=== PATIENT | female | born 1930 | race Caucasian/White ===

== ENCOUNTER 2017-04-29 07:12 | Outpatient (CLI) | payer MEDICARE, OTHER ==
--- NOTE | ~2017-04-29 | HEMODYNAMI ---
PATIENT:LOPEZ MOREAU MEDICAL RECORD: [id number] : 34 LOCATION:[facility] ADMISSION DATE: 04/29/17 Generatedon:04/29/201713:40 Patient name: LOPEZ MOREAU Patient #: [id number] SSN: : [id number] Date of study: 04/29/2017 Page: Of Hemodynamic Procedure Report Patient Data Patient Demographics Procedure consent was obtained First Name: LOPEZ Gender: Female Last Name: LIZZETH : 1930 Patient #: [id number] Age: 86 year(s) Race: Unknown Additional ID: [id number] Contact details Address: [address] [place] [address] [address] State: [place] City: [facility] Zip code: [address] Past Medical History Allergies Allergen Reaction Date Comments Reported Other allergy 04/29/2017 ibuprofen Admission Admission Data Admission Date: 04/29/2017 Admission Time: 13:00 Procedure Procedure Types Cath Procedure Diagnostic Procedure LHC LHC w/Coronaries PCI Procedure PTCA PTCA Initial Miscellaneous Procedures Moderate Sedation up to 15 minutes Procedure Description Procedure Date Procedure Date: 04/29/2017 Procedure Start Time: 13:13 Procedure End Time: 13:38 Procedure Staff Name Function Cj Young MD Performing Physician Gris Hassan RT Monitor Jaimee Tamayo RT Scrub Corby Pena RN Nurse Procedure Data Cath Procedure Fluoroscopy Diagnostic fluoroscopy Total fluoroscopy Time: 6.7 time: 6.7 min min Diagnostic fluoroscopy Total fluoroscopy dose: 840 dose: 840 mGy mGy Contrast Material Contrast Material Type Amount (ml) Isovue 300 118 Entry Location Entry Primary Successful Side Size Upsize Upsize Entry Closure Succes sful Closure Location (Fr) 1 (Fr) 2 (Fr) Remarks Device Remarks Femoral Right 5 Fr 6 Fr Exoseal artery Short Estimated blood loss: 5 ml Diagnostic catheters Device Type Used For End Catheter Placement MULTIPACK JL 4.0 5Fr Left Coronary catheter Angiography MULTIPACK 3DRC 5Fr Right Coronary catheter Angiography MULTIPACK Pigtail 5 Fr LV Angiography catheter Procedure Complications No complications Procedure Medications Medication Administration Route Dosage Oxygen NC 2 l/min Lidocaine 2% added to field 20 Heparin Flush Bag added to field 2 bags (1000units/500ml NS) 0.9% NaCl I.V. 100 ml/hr Versed I.V. 1 mg Fentanyl I.V. 50 mcg Versed I.V. 1 mg Fentanyl I.V. 50 mcg Versed I.V. 1 mg Fentanyl I.V. 50 mcg Heparin Bolus I.V. 4000 units Integrilin (Bolus I.V. 5 ml 2mg/ml) Brilinta P.O. 180 mg Hemodynamics Rest Heart Rate: 72 (bpm) Pressure Samples Time Site Value (mmHg) Purpose Heart Use Rate(bpm) 13:19 LV 203/25,-15 Snapshot 68 13:19 AO 114/64(79) Pullback 75 13:19 LV 118/11,13 Pullback 75 Gradients Valve Time Site 1 Site 2 Mean SEP/DFP Peak To Heart Use (mmHg) (sec/min) Peak Rate (mmHg) (bpm) Aortic 13:19 LV AO 11 17 4 75 118/11,13 114/64(79) Calculations Valve P-P Mean Valve Index Valve Source Name Gradient Area Flow (cm2) Aortic 4 11 4 11 Snapshots Pre Cath Intra NCS Post Cath Vital Signs Time Heart Resp SPO2 etCO2 NIBP (mmHg) Rhythm Pain Sedation Rate (ipm) (%) (mmHg) Status Level (bpm) 13:01:49 68 21 99 0 195/74(137) NSR 0 (11) 10(A) , No pain 13:06:19 65 19 97 29.2 180/64(121) NSR 0 (11) 10(A) , No pain 13:10:33 62 18 95 22.4 174/103(134) NSR 0 (11) 10(A) , No pain 13:15:06 64 16 96 11.9 183/54(107) NSR 0 (11) 9(A) , No pain 13:19:30 68 15 98 19.4 162/51(84) NSR 0 (11) 9(A) , No pain 13:23:54 68 16 94 8.2 156/57(98) NSR 0 (11) 9(A) , No pain 13:28:18 70 17 97 28.4 150/53(106) NSR 0 (11) 9(A) , No pain 13:32:36 71 19 98 20.2 151/55(93) NSR 0 (11) 9(A) , No pain 13:37:01 72 17 96 11.2 150/53(97) NSR 0 (11) 10(A) , No pain Medications Time Medication Route Dose Verified Delivered Reason Notes Effectiveness by by 13:05:09 Oxygen NC 2 Cj Buffie used for l/min St Panda Pena RN procedure 13:05:18 Lidocaine 2% added 20ml Cj Cj for local to vial [facility] anesthetic field MD GAXIOLA 13:05:23 Heparin Flush added 2 Cj Cj used for Bag to bags [facility] procedure (1000units/500ml field MD GAXIOLA NS) 13:05:32 0.9% NaCl I.V. 100 Cj Buffie Per physician ml/hr St Panda Pena RN, MD 13:11:50 Versed I.V. 1 mg Cj Buffie for sedation St Panda Pena RN, MD 13:11:56 Fentanyl I.V. 50 Cj Buffie for sedation [facility] [place] P[facility] RN, MD 13:15:31 Versed I.V. 1 mg Cj Buffie for sedation St Pnada Pena RN, MD 13:15:35 Fentanyl I.V. 50 Cj Buffie for sedation [facility] Panda Pena RN, MD 13:20:17 Versed I.V. 1 mg Cj Buffie for sedation St Panda Pena RN, MD 13:20:21 Fentanyl I.V. 50 Cj Buffie for sedation [facility] Panda Pena RN, MD 13:21:14 Heparin Bolus I.V. [address] for units [facility] Panda Pena RN anticoagulation 13:22:57 Integrilin I.V. 5 ml Cj Buffie for (Bolus 2mg/ml) St Panda Pena RN antiplatelet therapy 13:38:18 Brilinta P.O. 180 Cj Jimenezie for mg St Panda Pena RN antiplatelet therapy Procedure Log Time Note 12:40:57 Gris Hassan RT(R) sent for patient. Start room use. 12:53:57 Time tracking: Regular hours 12:54:02 Plan of Care:Hemodynamics will remain stable., Cardiac rhythm will remain stable., Comfort level will be maintained., Respiratory function will remain adequate., Patient/ family verbilizes understanding of procedure., Procedure tolerated without complication., Recovers from procedure without complications.. 12:54:17 Patient received from Pre/Post Procedure Room to CCL 2 Alert and oriented. Tansferred to table in Supine position. 12:54:17 Warm blankets applied, and maddi hugger turned on for patient comfort. 12:54:18 Correct patient and procedure confirmed by team. 12:54:20 Signed procedure consent form obtained from patient. 12:54:20 ECG and BP/O2 sat monitors applied to patient. 12:59:20 Baseline sample Acquired. 12:59:20 Vital chart was started 12:59:24 Rhythm: sinus rhythm 12:59:26 Full Disclosure recording started 13:00:25 H&P Date Dictated: 04/29/2017 Within 30 days and on chart., H&P Addendum completed by physician on day of procedure. (MUST COMPLETE FOR ALL OUTPATIENTS). 13:00:26 Pre-procedure instructions explained to patient. 13:00:27 Pre-op teaching completed and patient verbalized understanding. 13:00:40 Family in waiting room. 13:00:42 Patient NPO since Midnight. 13:00:56 Patient allergic to Other allergyibuprofen 13:00:58 Is the patient allergic to Iodine/contrast media? No. 13:00:59 Was the patient premedicated? No 13:01:11 Is patient on blood thinner?No 13:01:15 Patient diabetic? Yes. 13:01:16 If diabetic: On Metformin? Yes 13:01:20 If on Metformin: Last Dose? 04/28/2017 13:01:25 Previous problem with sedation/anesthesia? No ? 13:01:27 Snore? Yes 13:01:28 Sleep apnea? No 13:01:29 Deviated septum? No 13:01:30 Opens mouth fully? Yes 13:01:30 Sticks out tongue? Yes 13:01:38 Airway obstruction? No ? 13:01:42 Dentures? No ? 13:01:46 Pre procedure: right dorsailis pedis pulse 1+ Palpable, but thready & weak; easily obliterated 13:01:49 Pre procedure: left dorsailis pedis pulse 1+ Palpable, but thready & weak; easily obliterated 13:01:56 Patient pain scale 0/10 ?. 13:02:03 IV patent on arrival in left antecubital with 0.9% NaCl at [facility]. 13:02:09 Lab results completed and on chart. 13:02:48 Right groin area was prepped with chlora-prep and draped in sterile fashion 13:02:49 Alarms reviewed by R. N. 13:02:49 Sharps counted by scrub and verified by R.N. 13:05:09 Oxygen 2 l/min NC was administered by Corby Pena RN; used for procedure; 13:05:18 Lidocaine 2% 20ml vial added to field was administered by Cj Young MD; for local anesthetic; 13:05:23 Heparin Flush Bag (1000units/500ml NS) 2 bags added to field was administered by Cj Young MD; used for procedure; 13:05:32 0.9% NaCl 100 ml/hr I.V. was administered by Corby Pena RN; Per physician; 13:10:01 Physician arrived 13:10:01 --------ALL STOP TIME OUT------ 13:10:02 Final Timeout: patient, procedure, and site verified with staff and physician. All members of the team are in agreement. 13:10:04 Right groin site verified by team. 13:10:06 Physical assessment completed. ASA score P 2 - A patient with mild systemic disease as per Cj Young MD. 13:10:09 Sedation plan: IV Moderate Sedation Medication:Versed, Fentanyl 13:11:50 Versed 1 mg I.V. was administered by Corby Pena RN; for sedation; 13:11:56 Fentanyl 50 mcg I.V. was administered by Corby Pena RN; for sedation; 13:13:05 Use device set Femoral Dx 13:13:07 ACIST Syringe (96785) opened to sterile field. 13:13:07 Bag Decanter (2002S) opened to sterile field. 13:13:07 Medline Cath Pack ([id number]) opened to sterile field. 13:13:08 SHEATH 5FR [place] (XCM520) opened to sterile field. 13:13:09 DIAGNOSTIC WIRE .035 260cm J wire (810577) opened to sterile field. 13:13:10 ACIST Hand Control (06871) opened to sterile field. 13:13:10 ACIST Manifold (85881) opened to sterile field. 13:13:11 DIAGNOSTIC Multipack 5Fr catheter set (JF6668) opened to sterile field. 13:13:11 Tegaderm 4 x 4 (1626W) opened to sterile field. 13:13:21 Procedure started. 13:13:24 Local anesthetic to right femoral artery with Lidocaine 2% by Cj Young MD.INITIAL ACCESS ONLY 13:13:33 A 5 Fr sheath was inserted into the Right Femoral artery 13:14:19 A MULTIPACK JL 4.0 5Fr catheter was advanced over the wire and used for Left Coronary Angiography. 13:15:01 LCA angiography performed. 13:15:04 Injector settings: Ml/sec: 3, Volume: 6, 13:15:31 Versed 1 mg I.V. was administered by Corby Pena RN; for sedation; 13:15:35 Fentanyl 50 mcg I.V. was administered by Corby Pena RN; for sedation; 13:16:39 Catheter removed. 13:16:44 A MULTIPACK 3DRC 5Fr catheter was advanced over the wire and used for Right Coronary Angiography. 13:17:35 RCA angiography performed. 13:17:43 Injector settings: Ml/sec: 3, Volume: 6, 13:18:04 Catheter removed. 13:18:10 A MULTIPACK Pigtail 5 Fr catheter was advanced over the wire and used for LV Angiography. 13:20:17 Versed 1 mg I.V. was administered by Corby Pena RN; for sedation; 13:20:17 LV hemodynamics recorded. 13:20:18 LV gram done using PRITCHETT 13:20:21 Fentanyl 50 mcg I.V. was administered by Corby Pena RN; for sedation; 13:20:21 Injector settings: Ml/sec: 5, Volume: 15, 13:20:23 Sheath upsized to a 6 Fr Short. 13:20:26 EF : 55 % 13:20:29 Catheter removed. 13:20:32 Proceeding to intervention. 13:20:50 6 Fr jl 4 guide catheter was inserted over the wire 13:21:14 Heparin Bolus 4000 units I.V. was administered by Corby Pena RN; for anticoagulation; 13:22:43 INFLATOR [place] BasixCompak (ZH2627) opened to sterile field. 13:22:45 SHEATH 6FR [place] (LYW547) opened to sterile field. 13:22:45 WHISPER 300cm guide wire ([id number]) opened to sterile field. 13:22:57 Integrilin (Bolus 2mg/ml) 5 ml I.V. was administered by Corby Pena RN; for antiplatelet therapy; 13:23:39 GUIDE 6FR JL 4.0 catheter (VH2VC00) opened to sterile field. 13:25:37 Guide Catheter removed. unable to cannulate vessel. 13:25:51 GUIDE 6FR EBU 3.5 catheter ([id number]) opened to sterile field. 13:26:00 6 Fr ebu 3.5 guide catheter was inserted over the wire 13:29:36 whisper wire advanced. 13:29:38 Wire advanced across lesion. 13:30:47 Inflation number: 1 A EMERGE OTW 3.0 x 15 balloon ([id number]) was prepped and advanced across the Dist LAD, then inflated to 8 MEENAKSHI for 0:30 (min:sec). 13:31:36 Inflation number: 2 The EMERGE OTW 3.0 x 15 balloon ([id number]) was reinflated across the Dist LAD, to 12 MEENAKSHI for 0:30 (min:sec). 13:32:21 Inflation number: 3 The EMERGE OTW 3.0 x 15 balloon ([id number]) was reinflated across the Dist LAD, to 12 MEENAKSHI for 0:30 (min:sec). 13:33:02 Inflation number: 4 The EMERGE OTW 3.0 x 15 balloon ([id number]) was reinflated across the Dist LAD, to 14 MEENAKSHI for 0:30 (min:sec). 13:33:36 Balloon removed over the wire. 13:33:37 Wire removed. 13:33:37 Guide catheter removed. 13:33:45 EXOSEAL 6Fr (EX600) opened to sterile field. 13:36:01 Sheath removed intact; hemostasis achieved with Exoseal to the Right Femoral artery. 13:36:03 Procedure ended.(Physican Out) :36:36 Fluoroscopy time 06.70 minutes. 13:36:39 Fluoroscopy dose: 840 mGy 13:36:39 Flurop Dose total: 840 13:36:43 Contrast amount:Isovue 300 118ml. 13:36:44 Sharps counted by scrub and verified by R.N. 13:36:45 Insertion/operative site no bleeding no hematoma. 13:36:48 Post-op/insertion site Right Femoral artery dressed using a 4 x 4 and Tegaderm. 13:36:50 Post right femoral artery:stable 13:36:52 Post Procedure Pulses reassessed and unchanged 13:36:56 Post procedure rhythm: unchanged. 13:37:22 Estimated blood loss: 5 ml 13:37:23 Post procedure instruction explained to patient.Patient verbalizes understanding. 13:37:24 Patient needs reinforcement of post procedure teaching. 13:37:51 Procedure type changed to Cath procedure, Diagnostic procedure, LHC, LHC w/Coronaries, PCI procedure, PTCA, PTCA Initial, Miscellaneous Procedures, Moderate Sedation up to 15 minutes 13:37:52 Procedure and supply charges have been captured, reviewed, submitted and are correct. 13:38:00 Procedure Complication : No complications 13:38:03 Vital chart was stopped 13:38:03 See physician's report for complete and final results. 13:38:14 Report given to Pre/Post Procedure Room. 13:38:17 Patient transfered to Pre/Post Procedure Room with Stretcher. 13:38:18 Brilinta 180 mg P.O. was administered by Corby Pena RN; for antiplatelet therapy; 13:38:19 Procedure ended. 13:38:19 Full Disclosure recording stopped 13:38:30 ACC-PCI Only Patient was given prescriptions, or instructed by Cj Young MD to start/continue the following medications upon discharge: Brilinta 13:38:32 End room use (Document Last) Intervention Summary Intervention Notes Time ActionType Lesion and Equipment Action# Pressure Duration Attributes Used 13:30:47 Inflate Dist LAD EMERGE OTW 1 8 00:30 balloon 3.0 x 15 balloon ([id number]) 13:31:36 Reinflate Dist LAD EMERGE OTW 2 12 00:30 balloon 3.0 x 15 balloon ([id number]) 13:32:21 Reinflate Dist LAD EMERGE OTW 3 12 00:30 balloon 3.0 x 15 balloon ([id number]) 13:33:02 Reinflate Dist LAD EMERGE OTW 4 14 00:30 balloon 3.0 x 15 balloon ([id number]) Device Usage Item Name Manufacture Quantity Catalog Number Hospital Part Current Min imal Lot# / Charge Number Stock Stock Serial# Code ACIST Acist 1 84814 [id number] 510588 984808 20 Syringe Medical (88168) Systems Inc Bag Decanter Microtek 1 2001S 025787 19405 463963 5 (2001S) Medical Inc. Medline Cath Cardinal 1 [id number] 145120 56980 714857 5 [facility] Health ([id number]) SHEATH 5FR Terumo 1 UVH261 845136 335244 618663 40 [place] (RQR743) DIAGNOSTIC St [place] 1 099149 472916 031516 960526 30 WIRE .035 260cm J wire (681487) ACIST Hand Acist 1 27010 019687 636528 376724 5 Control Medical (46724) Systems Inc ACIST Acist 1 29125 945712 742167 607449 5 Manifold Medical (60326) Systems Inc DIAGNOSTIC Cardinal 1 CK1567 451802 51531 359366 30 Multipevolso Health 5Fr catheter set (ZX0379) Tegaderm 4 x 3M 1 1626W 976193 657901 288731 5 4 (1626W) MULTIPACK JL Cardinal 1 271363 5 4.0 5Fr Health catheter MULTIPACK Cardinal 1 197858 5 3DRC 5Fr Health catheter MULTIPACK Cardinal 1 084195 5 Pigtail 5 Fr Health catheter INFLATOR [facility] 1 UH0511 036858 569593 997742 15 [facility] BasixCompak (FG0737) SHEATH 6FR Terumo 1 FTU214 526147 552117 484795 40 [place] (PMT096) WHISPER Alves 1 [id number] 542704 369394 162515 5 300cm guide Vascular wire (8003143ME) GUIDE 6FR JL Medtronic 1 FR1KL51 521017 34379 993027 1 4.0 catheter (UA2HC12) GUIDE 6FR Medtronic 1 [id number] 292505 11831 213910 3 EBU 3.5 catheter (JN9HGO90) EMERGE OTW [place] 1 [id number] 468187 854263 524741 5 [id number] 3.0 x 15 Scientific balloon ([id number]) EXOSEAL 6Fr Cardinal 1 EX600 146788 703256 867013 10 (EX600) Health Signature Audit [place] Stage Time Signature Unsigned Intra-Procedure 04/29/2017 Gris Hassan 1:40:18 PM RT(R) Signatures Monitor : Gris Hassan RT Signature : Date : Time : [address] [place] [address]
--- NOTE | ~2017-04-29 | OP ---
PATIENT NAME: LOPEZ MOREAU MEDICAL RECORD: [id number] :34 LOCATION:D.CAT ADMISSION DATE: SURGEON: DAPHNIE SOUZA MD DATE OF OPERATION: 04/29/2017 PROCEDURE: Left heart catheterization, selective coronary angiography, and right femoral artery approach. CATHETERS: A 5-Turkmen sheath, 5/4 left and right Howard, and 5/4 pig. Procedure was well tolerated and the patient returned to gonzales, sheath removed. ExoSeal device placed. FINDINGS: Left ventriculography in 30-degree PRITCHETT view: Normal wall motion, normal systolic function. CORONARY ANATOMY: 1. LEFT MAIN: Left main is free of disease. 2. LAD: An area of previous stenting shows a restenosis of approximately 80%, this is diffuse in-stent. 3. CIRCUMFLEX: Free of disease. 4. RIGHT CORONARY ARTERY: No evidence of restenosis. No progression of [place] disease. PLAN: Intervention of restenotic LAD momentarily. The 5-Turkmen sheath was exchanged for a 6-Turkmen sheath. An XB LAD guide catheter 3.5 provided good guide catheter support followed by a 300 cm Whisper wire. Balloon used was a 3.0 x 15 mm Eagle at 14 atmospheres. Final injection shows excellent resolution of diffuse 80% stenosis to less than 20% residual. ELLA flow was 3 throughout the procedure. Brilinta was loaded in the lab. Heparin and Integrilin were used during the case. Sheath closed with ExoSeal device. TRANSINT:[id number] Voice Confirmation ID: [id number] DOCUMENT ID: [id number] DAPHNIE SOUZA MD at 1310 CC: [id number] DICTATION DATE: 04/29/17 1342 KIER OPERATOR: 04/29/17 1422 DEP CLI 04/29/17 [place] [id number]
[2017-04-29 11:27] VITALS: BP 166/57
[2017-04-29 11:29] LABS: BASOPHILS 0.3 % (0-2); EOSINOPHILS 2.2 % (0-7); HEMATOCRIT 32.5 % (36.0-48.0); HEMOGLOBIN 10.2 g/dL (12-16); IMMATURE GRANULOCYTES 0.2 % (0-5); LYMPHOCYTES 32.3 % (15-50); MCH 23.1 pg (26.0-34.0); MCHC 31.4 g/dL (31.0-37.0); MCV 73.7 fL (80.0-100.0); MEAN PLATELET VOLUME 10.1 fL (7.4-10.4); MONOCYTES 7.2 % (2-11); NEUTROPHILS 57.8 % (40-80); PLATELET COUNT 338 10x3/uL (130-400); RBC 4.41 10x6/uL (4.00-5.40); WBC 6.5 10x3/uL (4.8-10.8)
[2017-04-29] MEDS ORDERED: GLUCOPHAGE500 MG PO (11:40)
[2017-04-29] MEDS ORDERED: COREG6.25 MG PO (11:41)
[2017-04-29] MEDS ORDERED: GLYBURIDE5 M1 PO (11:41)
[2017-04-29] MEDS ORDERED: ACTOS30 MG PO (11:42)
[2017-04-29] MEDS ORDERED: LEXAPRO10 MG (11:42)
[2017-04-29] MEDS ORDERED: COSOPT EYE DROPS5 ML EACH EYE (11:43)
[2017-04-29] MEDS ORDERED: LOVASTATIN40 MG PO (11:43)
[2017-04-29] MEDS ORDERED: BAYER CHEWABLE81 MG PO (11:43)
[2017-04-29] MEDS ORDERED: XALATAN 0.0052.5 ML EACH EYE (11:44)
[2017-04-29] MEDS ORDERED: COMBIGAN OPHT DR5 ML EACH EYE (11:45)
[2017-04-29 11:48] LABS: CALC OSMOLALITY 276 mosm/kg (275-300); CARBON DIOXIDE 27.4 mmol/L (21.0-32.0); CHLORIDE - SERUM 103 mmol/L (98-107); CREATININE - SERUM 0.7 mg/dL (0.6-1.3); GLUCOSE 109 mg/dL (74-106); SODIUM 137 mmol/L (136-145); UREA NITROGEN 19 mg/dL (7-18); eGFR NON AFRICAN AMERICAN 84 mL/min (90-120)
[2017-04-29] MEDS ORDERED: BRILINTA90 MG PO (13:53)
== END 2017-04-29 23:59 | disposition home or self-care (01) ==
LOC: D.CATH 07:12
PROVIDERS: Internal Medicine Interventional Cardiology
DX: I25.119 Atherosclerotic heart disease of native coronary artery with unspecified angina pectoris (principal); T82.855A Stenosis of coronary artery stent, initial encounter; Z01.812 Encounter for preprocedural laboratory examination

== ENCOUNTER 2017-08-08 12:55 | Outpatient (CLI) | payer MEDICARE, OTHER ==
[~2017-08-08] VITALS: Ht 162.6 cm; Wt 61.4 kg
[~2017-08-08 12:55] MED LIST: ACTOS30 MG PO; BAYER CHEWABLE81 MG PO; BRILINTA90 MG PO; COMBIGAN OPHT DR5 ML EACH EYE; COREG6.25 MG PO; COSOPT EYE DROPS5 ML EACH EYE; GLUCOPHAGE500 MG PO; GLYBURIDE5 M1 PO; LEXAPRO10 MG; LOVASTATIN40 MG PO; XALATAN 0.0052.5 ML EACH EYE
[2017-08-08 13:29] VITALS: Ht 162.6 cm; Wt 61.4 kg
== END 2017-08-08 16:30 | disposition home or self-care (01) ==
LOC: D.OPS 12:55
DX: D64.9 Anemia, unspecified (principal)

== ENCOUNTER → 2018-07-03 10:50 | Outpatient (CLI) | payer MEDICARE, OTHER ==
[2017-08-08 13:29] VITALS: BMI 23.2
== END | disposition home or self-care (01) ==
LOC: D.MRI 10:50
PROVIDERS: ATTEND Orthopaedic Surgery
DX: M25.512 Pain in left shoulder (principal)

== ENCOUNTER → 2019-01-14 08:31 | Outpatient (CLI) | payer MEDICARE, OTHER ==
[2017-08-08 13:29] VITALS: BMI 23.2
== END | disposition home or self-care (01) ==
LOC: D.MRI 08:31
PROVIDERS: ATTEND Orthopaedic Surgery
DX: M25.512 Pain in left shoulder (principal)

== ENCOUNTER → 2019-08-02 09:14 | Outpatient (CLI) | payer MEDICARE, OTHER ==
[2017-08-08 13:29] VITALS: BMI 23.2
== END | disposition home or self-care (01) ==
LOC: D.HCCARDIO 09:14
PROVIDERS: ATTEND Internal Medicine Cardiovascular Disease
DX: I25.119 Atherosclerotic heart disease of native coronary artery with unspecified angina pectoris (principal)

== ENCOUNTER 2019-08-18 07:17 | Outpatient (CLI) | payer MEDICARE, OTHER ==
[~2019-08-18] VITALS: Ht 162.6 cm; Wt 58.8 kg
--- NOTE | ~2019-08-18 | HEMODYNAMI ---
PATIENT:LOPEZ MOREAU MEDICAL RECORD: [id number] : 34 LOCATION:[facility] ADMISSION DATE: 08/18/19 Generatedon:08/18/20199:51 Patient name: LOPEZ MOREAU Patient #: [id number] SSN: [id number] : 1930 Date of study: 08/18/2019 Page: Of Hemodynamic Procedure Report Patient Data Patient Demographics Procedure consent was obtained First Name: LOPEZ Gender: Female Last Name: LIZZETH : 1930 [facility] Initial: CHELSI Age: 88 year(s) Patient #: [id number] Race: SSN: [id number] Additional ID: [id number] Contact details Address: [address] [place] [address] [address] State: [place] City: [facility] Zip code: [address] Past Medical History Performed procedures and imaging results Date Procedure Procedure Results Comments 08/02/2019 Stress testing Positive->Intermediate with SPECT MPI risk Allergies Allergen Reaction Date Comments Reported Other allergy 04/29/2017 ibuprofen Admission Admission Data Admission Date: 08/18/2019 Admission Time: 7:17 Admit Source: Other Lab Results Lab Result Date: 08/18/2019 Lab Result Time: 0:00 Biochemistry Name Units Result Min Max BUN mg/dl 19 --(----)*- 7 18 Creatinine mg/dl 0.6 --(*---)-- 0.6 1.3 eGFR ml/min 90 --(*---)-- 90 120 NONAFRICAN CBC Name Units Result Min Max Hematocrit % 36.2 *-(----)-- 42 54 Hemoglobin g/dl 11.6 *-(----)-- 13.5 17.5 Procedure Procedure Types Cath Procedure Diagnostic Procedure LHC LHC w/Coronaries Sedation Charges Moderate Sedation up to 15 minutes Procedure Description Procedure Date Procedure Date: 08/18/2019 Procedure Start Time: 9:39 Procedure End Time: 9:50 Procedure Staff Name Function Cj Young MD Performing Physician Corby Pena RN Nurse Gris Hassan RT Scrub Linn Jenkins RT Monitor Procedure Data Cath Procedure Fluoroscopy Diagnostic fluoroscopy Total fluoroscopy Time: 1.9 time: 1.9 min min Diagnostic fluoroscopy Total fluoroscopy dose: 225 dose: 225 mGy mGy Contrast Material Contrast Material Type Amount (ml) Isovue 370 47 Entry Location Entry Primary Successful Side Size Upsize Upsize Entry Closure Succes sful Closure Location (Fr) 1 (Fr) 2 (Fr) Remarks Device Remarks Femoral Right 5 Fr Exoseal artery Estimated blood loss: 5 ml Diagnostic catheters Device Type Used For End Catheter Placement MULTIPACK JL 4.0 5Fr Procedure catheter MULTIPACK 3DRC 5Fr Procedure catheter MULTIPACK Pigtail 5 Fr Procedure catheter Procedure Complications No complications Procedure Medications Medication Administration Route Dosage Oxygen etCO2 Nasal cannula 2 l/min Lidocaine 2% added to field 20 Heparin Flush Bag added to field 2 bags (1000units/500ml NS) 0.9% NaCl I.V. 100 ml/hr Versed I.V. 1 mg Fentanyl I.V. 50 mcg Versed I.V. 1 mg Fentanyl I.V. 50 mcg Hemodynamics Rest HGB: 11.6 (g/dl) Heart Rate: 67 (bpm) Pressure Samples Time Site Value (mmHg) Purpose Heart Use Rate(bpm) 9:45 LV 91/9,7 Snapshot 71 9:46 AO 149/61(88) Pullback 66 Gradients Valve Time Site Site 2 Mean SEP/DFP Peak To Heart Use 1 (mmHg) (sec/min) Peak Rate (mmHg) (bpm) Aortic 9:46 LV AO 11 23 66 149/61(88) Calculations Valve P-P Mean Valve Index Valve Source Name Gradient Area Flow (cm2) Aortic 11 11 Snapshots Pre Cath Intra NCS Post Cath Vital Signs Time Heart Resp SPO2 etCO2 NIBP (mmHg) Rhythm Pain Sedation Rate (ipm) (%) (mmHg) Status Level (bpm) 9:18:41 72 12 99 0 174/67(124) NSR 0 (11) 10(A) , No pain 9:23:06 85 28 100 24.8 184/71(137) NSR 0 (11) 10(A) , No pain 9:27:36 65 16 100 36.2 173/65(117) NSR 0 (11) 10(A) , No pain 9:32:04 62 13 98 36.9 150/58(109) NSR 0 (11) 10(A) , No pain 9:36:26 60 14 97 15.8 130/51(106) NSR 0 (11) 10(A) , No pain 9:40:40 59 16 97 40.6 120/53(96) NSR 0 (11) 9(A) , No pain 9:44:50 63 15 93 33.1 120/52(100) NSR 0 (11) 9(A) , No pain 9:49:00 66 8 95 56.5 126/54(99) NSR 0 (11) 10(A) , No pain Medications Time Medication Route Dose Verified Delivered Reason Notes Effe ctiveness by by 9:17:51 Oxygen etCO2 2 Cj Buffie used [facility] l[facility] 9:17:57 Lidocaine 2% added 20ml Cj Cj for local to vial [facility] anesthetic field MD GAXIOLA 9:18:05 Heparin Flush added 2 Cj Cj used for Bag to bags [facility] procedure (1000units/500ml field MD GAXIOLA NS) 9:18:13 0.9% NaCl I.V. 100 Cj Buffie Per ml/hr [facility] RN physician 9:33:46 Versed I.V. 1 mg Cj Buffie for HannahPanda Pena RN sedation 9:33:52 Fentanyl I.V. [address] m[address] Panda Pena RN sedation 9:41:09 Versed I.V. 1 mg Cj Buffie for HannahPanda Pena RN sedation 9:41:13 Fentanyl I.V. 50 Cj Buffie for [facility] RN sedation Procedure Log Time Note 8:31:53 Informed consent obtained and on chart 8:35:26 Stress Test: yes; abnormal apical and inferior 8:35:52 Diagnostic Cath Status : Elective 8:36:13 Admit Source: Other 8:36:16 Procedure Status Elective Heart Cath (OP). 8:36:17 Time tracking: Regular hours (M-F 7:00 - 5:00) 8:36:22 Plan of Care:Hemodynamics will remain stable., Cardiac rhythm will remain stable., Comfort level will be maintained., Respiratory function will remain adequate., Patient/ family verbilizes understanding of procedure., Procedure tolerated without complication., Recovers from procedure without complications.. 8:50:47 Lab Result : Hemoglobin 11.6 g/dl 8:50:47 Lab Result : Hematocrit 36.2 % 8:56:24 Corby Pena RN sent for patient. Start room use. 9:04:15 Lab Result : BUN 19 mg/dl 9:04:15 Lab Result : eGFR NONAFRICAN 90 ml/min 9:04:15 Lab Result : Creatinine 0.6 mg/dl 9:08:34 Patient received from Pre/Post Procedure Room to CCL 2 Alert and oriented. Tansferred to table in Supine position. 9:08:36 Warm blankets applied, and maddi hugger turned on for patient comfort. 9:08:36 Correct patient and procedure confirmed by team. 9:08:36 ECG and BP/O2 sat monitors applied to patient. 9:17:26 Vital chart was started 9:17:51 Oxygen 2 l/min etCO2 Nasal cannula was administered by Corby Pena RN; used for procedure; Verbal order read back and verified. 9:17:53 Baseline sample Acquired. 9:17:54 Full Disclosure recording started 9:17:57 Lidocaine 2% 20ml vial added to field was administered by Cj Young MD; for local anesthetic; Verbal order read back and verified. 9:18:05 Heparin Flush Bag (1000units/500ml NS) 2 bags added to field was administered by Cj Young MD; used for procedure; Verbal order read back and verified. 9:18:13 0.9% NaCl 100 ml/hr I.V. was administered by Corby Pena RN; Per physician; Verbal order read back and verified. 9:18:18 H&P Date Dictated: 07/27/2019 Greater than 30 days; new H&P dictated by physician. Or brief H&P completed.. 9:18:19 Pre-procedure instructions explained to patient. 9:18:20 Pre-op teaching completed and patient verbalized understanding. 9:18:22 Family in waiting room. 9:18:27 Patient NPO since Midnight. 9:18:38 Is the patient allergic to Iodine/contrast media? No. 9:18:53 Was the patient premedicated? No 9:18:55 Is patient on blood thinner?No 9:18:57 Patient diabetic? Yes. 9:18:58 If diabetic: On Metformin? Yes 9:19:01 If on Metformin: Last Dose? 08/17/2019 9:19:06 Patient not . Patient is over age 55. 9:19:07 ----Pre-sedation anethsthesia assessment.---- 9:19:13 Previous problem with sedation/anesthesia? No ? 9:19:15 Snore? Yes 9:19:16 Sleep apnea? No 9:19:18 Deviated septum? No 9:19:19 Opens mouth fully? Yes 9:19:20 Sticks out tongue? Yes 9:19:22 Airway obstruction? No ? 9:19:24 Dentures? No ? 9:19:32 IV patent on arrival in right antecubital with 0.9% NaCl at [facility]. 9:19:34 Patient pain scale 0/10 ?. 9:19:38 Pre procedure: right dorsailis pedis pulse 2+ Normal; easily identifiable; not easily obliterated 9:19:43 Lab results completed and on chart. 9:19:49 Right groin area was prepped with chlora-prep and draped in sterile fashion 9:19:51 Alarms reviewed by R. N. 9:19:51 Sharps counted by scrub and verified by R.N. 9:19:59 Rhythm: sinus rhythm 9:30:05 --------ALL STOP TIME OUT------ 9:30:06 Final Timeout: patient, procedure, and site verified with staff and physician. All members of the team are in agreement. 9:30:07 Right groin site verified by team. 9:30:10 Fire Safety Assessment: A--An alcohol-based skin anteseptic being used preoperatively., C--Open oxygen or nitrous oxide is being used., D--An ESU, laser, or fiber-optic light is being used. 9:30:13 Physical assessment completed. ASA score P 2 - A patient with mild systemic disease as per Cj Young MD. 9:30:16 1) 90+ Normal kidney functon but urine findings or structural abnormalities or genetic trait point to kidney disease. 9:30:19 Maximum allowable contrast dose (3.7 X eGFR X 0.75)250 ml. 9:30:22 Sedation plan: IV Moderate Sedation Medication:Versed, Fentanyl 9:30:25 Use device set Femoral Dx 9:30:27 ACIST Syringe (02617) opened to sterile field. 9:30:27 Bag Decanter (2002S) opened to sterile field. 9:30:28 Medline Cath Pack ([id number]) opened to sterile field. 9:30:29 ACIST Hand Control (61542) opened to sterile field. 9:30:30 ACIST Manifold (36180) opened to sterile field. 9:30:30 DIAGNOSTIC Multipack 5Fr catheter set (SR1503) opened to sterile field. 9:30:32 SHEATH 5FR [place] (KYV325) opened to sterile field. 9:30:32 EMERALD Guide Wire (879-286) opened to sterile field. 9:33:46 Versed 1 mg I.V. was administered by Corby Pena RN; for sedation; Verbal order read back and verified. 9:33:52 Fentanyl 50 mcg I.V. was administered by Corby Pena RN; for sedation; Verbal order read back and verified. 9:39:17 Procedure started. 9:39:26 Local anesthetic to right femoral artery with Lidocaine 2% by Cj Young MD.INITIAL ACCESS ONLY 9:39:49 A 5 Fr sheath was inserted into the Right Femoral artery 9:40:45 A MULTIPACK JL 4.0 5Fr catheter was advanced over the wire and used for Procedure. 9:41:09 Versed 1 mg I.V. was administered by Corby Pena RN; for sedation; Verbal order read back and verified. 9:41:13 Fentanyl 50 mcg I.V. was administered by Corby Pena RN; for sedation; Verbal order read back and verified. 9:41:27 LCA angiography performed. 9:41:37 Injector settings: Ml/sec: 3, Volume: 6, 9:42:39 Catheter removed. 9:42:46 A MULTIPACK 3DRC 5Fr catheter was advanced over the wire and used for Procedure. 9:43:08 RCA angiography performed. 9:43:11 Injector settings: Ml/sec: 3, Volume: 6, 9:43:55 Catheter removed. 9:44:01 A MULTIPACK Pigtail 5 Fr catheter was advanced over the wire and used for Procedure. 9:45:33 LV gram done using PRITCHETT 9:45:36 Injector settings: Ml/sec: 5, Volume: 15, 9:45:58 LV hemodynamics recorded. 9:46:13 EF : 55 % 9:46:31 Catheter removed. 9:46:34 EXOSEAL 5Fr (EX500) opened to sterile field. 9:46:46 Sheath removed intact; hemostasis achieved with Exoseal to the Right Femoral artery. 9:46:53 Fluoroscopy time 01.90 minutes. 9:46:56 Fluoroscopy dose: 225 mGy 9:46:56 Flurop Dose total: 225 9:47:01 Dose Area Product 26646 mGy/cm. 9:47:04 Contrast amount:Isovue 370 47ml. 9:47:07 Maximum allowable dose exceeded? No. 9:47:08 Sharps counted by scrub and verified by R.N. 9:47:09 Procedure ended.(Physican Out) 9:47:38 Post-op/insertion site Right Femoral artery dressed using a 4 x 4 and Tegaderm. 9:47:42 Post right femoral artery:stable, soft, clean and dry 9:47:44 Post Procedure Pulses reassessed and unchanged 9:47:48 Post procedure: right dorsailis pedis pulse 2+ Normal; easily identifiable; not easily obliterated. 9:47:50 Post-procedure physical assessment completed. ASA score P 2 - A patient with mild systemic disease as per Cj Young MD. 9:47:54 Post procedure rhythm: unchanged. 9:47:56 Estimated blood loss: 5 ml 9:47:57 Post procedure instruction explained to patient.Patient verbalizes understanding. 9:47:58 Patient needs reinforcement of post procedure teaching. 9:48:18 Procedure type changed to Cath procedure, Diagnostic procedure, LHC, [facility] w/Coronaries, Sedation Charges, Moderate Sedation up to 15 minutes 9:48:49 Procedure and supply charges have been captured, reviewed, submitted and are correct. 9:48:53 Procedure Complication : No complications 9:48:55 Vital chart was stopped 9:48:57 [facility] Findings: mild to moderate CAD (<70%) 9:48:58 Operative report dictated upon procedure completion. 9:48:59 See physician's report for complete and final results. 9:49:00 Report given to Pre/Post Procedure Room. 9:49:03 Patient transfered to Pre/Post Procedure Room with Stretcher. 9:50:18 Procedure ended. 9:50:18 Full Disclosure recording stopped 9:50:29 End room use (Document Last) 9:50:41 End room use (Document Last) 9:51:03 End room use (Document Last) Device Usage Item Name Manufacture Quantity Catalog Hospital Part Current Minimal L ot# / Number Charge Number Stock Stock Serial# Code ACIST Acist 1 88090 [id number] 562146 789569 20 Syringe Medical (97017) Systems Inc Bag Microtek 1 888500 37993 430140 5 Decanter Medical Inc. () Medline Medline 1 [id number] 965550 38356 467406 5 Cath Pack ([id number]) ACIST Hand Acist 1 49903 607432 100039 879909 5 Control Medical (38822) Systems Inc ACIST Acist 1 29119 720830 797522 597359 5 Manifold Medical (55287) Systems Inc DIAGNOSTIC Cardinal 1 FX2688 556576 02455 741177 30 Multipack Health 5Fr catheter set (DG1171) SHEATH 5FR Terumo 1 DGV117 398811 335730 887247 5 [place] (CNA788) EMERALD Cardinal 1 502-013 422024 571961 360682 5 Guide Wire Health (502455) MULTIPACK Cardinal 1 256520 5 JL 4.0 5Fr Health catheter MULTIPACK Cardinal 1 156018 5 3DRC 5Fr Health catheter MULTIPACK Cardinal 1 242225 5 Pigtail 5 Health Fr catheter EXOSEAL 5Fr Cardinal 1 EX500 592191 157754 353799 10 (EX500) Health Signature Audit Gorman Stage Time Signature Unsigned Intra-Procedure 08/18/2019 Linn Jenkins 9:50:41 AM RT(R) Intra-Procedure 08/18/2019 Corby Pena RN 9:51:03 AM Intra-Procedure 08/18/2019 Cj Miranda 9:51:24 AM Panda GAXIOLA Signatures Performing Physician : Signature : Cj Young MD Date : Time : Nurse : Buffie Pena RN Signature : Date : Time : Monitor : Linn Young Signature : RT Date : Time : [address] [place] [address]
--- NOTE | ~2019-08-18 | OP ---
PATIENT NAME: LOPEZ MOREAU MEDICAL RECORD: [id number] :34 LOCATION:D.CAT ADMISSION DATE: SURGEON: DAPHNIE SOUZA MD DATE OF OPERATION: 08/18/2019 PROCEDURE: Left heart catheterization, selective coronary angiography, right femoral artery approach. CATHETERS: A 5-Belizean sheath, 5/4 left and right Howard, 5/4 pig. The procedure was well tolerated. The patient returned to the gonzales, sheath removed. ExoSeal device placed. FINDINGS: Left ventriculography in 30-degree PRITCHETT view; normal wall motion and normal systolic function. CORONARY ANATOMY: LEFT MAIN: Left main is free of disease. LAD: LAD shows a widely patent stent, no evidence of restenosis. No progression of sauk-[place] disease. CIRCUMFLEX: Medium size circumflex free of disease. RIGHT CORONARY ARTERY: Previously placed stent is widely patent. No evidence of restenosis. No progression of sauk-[place] disease. IMPRESSION: No evidence of restenosis. Left ventricular function remains normal. No significant progression of sauk-sui[place] disease. TRANSINT:[id number] Voice Confirmation ID: [id number] DOCUMENT ID: [id number] DAPHNIE SOUZA MD CC: [id number] DICTATION DATE: 08/18/19 0955 PLASTIC MOULD MAKER: 08/18/19 1856 DEP CLI 08/18/19 [facility] [address] [id number]
[2019-08-18] MEDS ORDERED: DORZOLAMIDE-TI1 EACH EACH EYE (07:49)
[2019-08-18] MEDS ORDERED: CALCIUM 500 +1 EAC3 PO (07:50)
[2019-08-18 07:55] VITALS: BP 157/47; Ht 162.6 cm; Wt 58.8 kg
[2019-08-18 08:26] LABS: BASOPHILS 0.1 % (0-2); EOSINOPHILS 1.8 % (0-7); HEMATOCRIT 36.2 % (36.0-48.0); HEMOGLOBIN 11.6 g/dL (12-16); IMMATURE GRANULOCYTES 0.1 % (0-5); LYMPHOCYTES 26.1 % (15-50); MCH 28.4 pg (26.0-34.0); MCV 88.5 fL (80.0-100.0); MEAN PLATELET VOLUME 10.6 fL (7.4-10.4); MONOCYTES 9.7 % (2-11); NEUTROPHILS 62.2 % (40-80); RBC 4.09 10x6/uL (4.00-5.40); RDW 14.6 % (11.5-14.5); WBC 7.2 10x3/uL (4.8-10.8)
[2019-08-18 08:45] LABS: PLATELET COUNT 239 10x3/uL (130-400)
[2019-08-18 08:49] LABS: ALT (SGPT) 20 U/L (10-68); CALC OSMOLALITY 285 mosm/kg (275-300); CALCIUM 8.7 mg/dL (8.5-10.1); CARBON DIOXIDE 28.3 mmol/L (21.0-32.0); CHLORIDE - SERUM 108 mmol/L (98-107); CHOL - HDL RATIO 3.2 ratio (2.3-4.1); CHOLESTEROL, TOTAL 123 mg/dL (0-200); CREATININE - SERUM 0.6 mg/dL (0.6-1.3); GLUCOSE 155 mg/dL (74-106); HDL CHOLESTEROL 38 mg/dL (32-96); LDL CHOLESTEROL 71 mg/dL (0-100); LDL-HDL RATIO 1.9 ratio (1.5-3.5); POTASSIUM - SERUM 4.3 mmol/L (3.5-5.1); SODIUM 141 mmol/L (136-145); TRIGLYCERIDE 71 mg/dL (30-200); UREA NITROGEN 19 mg/dL (7-18); eGFR NON AFRICAN AMERICAN > 90 mL/min (90-120)
--- NOTE | 2019-08-18 10:00 | NUR ---
PT REC'D TO ROOM 8 VIA STRETCHER FROM [employer]EL [employer]INO FLOORPERSON. MONITORS ESTAB. AT BS, PT DROWSY. SEE SALES ORDER CLERK. ALARMS ON AND C/L IN REACH.
--- NOTE | 2019-08-18 10:15 | NUR ---
R GROIN SITE SOFT, NO S/S BLEEDING OR HEMATOMA. VSS. PT RESTING QUIETLY, DENIES PAIN OR NEEDS. PULSES EASILY PALP, BRISK CAP REFILL.
--- NOTE | 2019-08-18 10:45 | NUR ---
R GROIN SITE SOFT, NO S/S BLEEDING OR HEMATOMA. PULSES PALP. PT STILL RESTING QUIETLY, VSS. ALARMS ON AND C/L IN REACH.
--- NOTE | 2019-08-18 11:00 | NUR ---
R GROIN SITE SOFT, C/D/I. PULSES PALP. BEGIN TO RAISE HOB. VSS.
--- NOTE | 2019-08-18 11:20 | NUR ---
R GROIN SITE SOFT, C/D/I. HOB UP. MITCHELL PROVIDED, ASSISTING.
--- NOTE | 2019-08-18 11:45 | NUR ---
PT ATE WITH OUT DIFFICULTY NOTED. PT STILL DROWSY AT TIMES. R GROIN SITE SOFT, C/D/I. VSS. AT BS.
--- NOTE | 2019-08-18 12:15 | NUR ---
R GROIN SITE SOFT, NO S/S BLEEDING OR HEMATOMA. VSS. PT ALERT AND ORIENTED. PIV D/C'D INTACT DSG APPLIED AND PT ALLOWED UP TO GET DRESSED WITH ASSISTING.
--- NOTE | 2019-08-18 12:35 | NUR ---
ALL DISCHARGE INSTRUCTIONS REVIEWED WITH PT AND - BOTH VERALIZE UNDERSTANDING. PT D/C'D VIA WC TO PRIVATE VEHICLE - PT HAS ALL PAPER WORK AND BELONGINGS.
== END 2019-08-18 12:35 | disposition home or self-care (01) ==
LOC: D.CATH 07:17
PROVIDERS: ATTEND Internal Medicine Interventional Cardiology
DX: I10 Essential (primary) hypertension (principal); I25.119 Atherosclerotic heart disease of native coronary artery with unspecified angina pectoris; E78.5 Hyperlipidemia, unspecified; E11.9 Type 2 diabetes mellitus without complications; Z79.84 Long term (current) use of oral hypoglycemic drugs; K76.0 Fatty (change of) liver, not elsewhere classified